=== PATIENT | male | born 1970 | race Caucasian/White ===

== ENCOUNTER → 2019-02-16 18:54 | Outpatient (CLI) | payer OTHER, SELFPAY ==
--- NOTE | 2019-02-16 | DI.MRI.S_ITS ---
PROCEDURE: MR CERVICAL SPINE WO CON INDICATIONS: NERVE ROOTMAND PLEXUS DISORDER, UNSPECIFIED TECHNIQUE: Noncontrast sagittal T1 spin echo and T2 fast spin echo, sagittal STIR, foraminal oblique sagittal T2 fast spin echo, and axial gradient echo or T2 fast spin echo through the cervical spine. COMPARISON: None. FINDINGS: Image quality: Excellent. Alignment and Curvature: There is normal bony alignment. Bone Marrow: Marrow demonstrates normal overall signal. Spinal Cord: Visualized spinal cord has normal size and signal. No cerebellar tonsillar herniation. Paraspinous Soft Tissues: No paravertebral masses. Prevertebral soft tissues are normal in thickness. C2-C3: No significant abnormality is seen. C3-C4: The disc height is well-preserved. Loss of disc signal is seen at this level. A mild degree of generalized disc osteophyte complex is seen. Mild to moderate facet hypertrophy is seen. There is moderate to severe left-sided and at least moderate right-sided neural foraminal narrowing seen. Minimal to mild central canal narrowing is seen. C4-C5: The disc height and disc signal are relatively well-preserved. A mild degree of generalized disc osteophyte complex is seen. Dlys-[id number]-xnraatix facet hypertrophy is seen. There is mild bilateral neural foraminal narrowing seen. No significant central canal narrowing is seen. C5-C6: The disc height is well-preserved. Loss of disc signal is seen at this level. Uncovertebral Moderate facet joint hypertrophy is seen. There is moderate to severe left-sided and moderate right-sided neural foraminal narrowing. Minimal to mild central canal narrowing is seen. C6-C7: Mild loss of disc height is seen. Loss of disc signal is seen. Moderate generalized disc osteophyte complex is seen. Uncovertebral joint hypertrophy is seen at this level. Moderate facet joint hypertrophy is seen. There is moderate to severe bilateral neural foraminal narrowing seen at this level. C7-T1: No significant abnormality is seen. IMPRESSION: Multiple levels of cervical spine degenerative change are seen, which are overall most prominent at the C6-C7 level. Dictated by: Eduin Shabazz M.D. on 02/17/2019 at 8:31 Approved by: Eduin Shabazz M.D. on 02/17/2019 at 8:36
== END ==
PROVIDERS: Visit Provider Family Medicine
DX: G54.9 Nerve root and plexus disorder, unspecified (principal); M48.02 Spinal stenosis, cervical region
CPT/HCPCS: 72141